=== PATIENT | male | born 1985 ===

== ENCOUNTER 2021-12-03 13:19 | Emergency (ER) | payer SELFPAY ==
[2021-12-03 13:32] VITALS: BP 159/99
--- NOTE | 2021-12-03 14:04 | Emergency Department Report ---
ED Recheck HPI - General Chief Complaint: High BP Stated Complaint: HBP Time Seen by Provider: 12/03/21 14:00 Source: patient Mode of arrival: Ambulatory Limitations: No Limitations - History of Present Illness Initial Comments: Patient is a 36-year-old male that comes to the emergency room from the urgent care because he went there for a work note because he missed work because he was not feeling well. They checked his blood pressure and it was elevated. He states that he had a recent fever and sinus infection. But when I saw his blood pressure they sent him to the ER. By the time he got to the ER his blood pressure had normalized. He has no history of hypertension. He is otherwise healthy and in no acute distress. Denies chest pain or shortness of breath. Is ambulatory, nontoxic [id number]. Complaint: other - Related Data Allergies Allergy/AdvReac Type Severity Reaction Status Date / Time No Known Allergies Allergy Verified 12/03/21 13:32 ED Review of Systems ROS: Stated complaint: HBP Other details as noted in HPI Comment: All other systems reviewed and negative ED Past Medical Hx - Past Medical History Previous Medical History?: No - Surgical History Past Surgical History?: No - Family History Family history: no significant - Social History Smoking Status: Current Every Day Smoker Substance Use Type: Alcohol ED Physical Exam - General Limitations: No Limitations General appearance: alert, in no apparent distress - Head Head exam: Present: atraumatic, normocephalic - Eye Eye exam: Present: normal appearance - ENT ENT exam: Present: mucous membranes moist - Neck Neck exam: Present: normal inspection - Respiratory Respiratory exam: Present: normal lung sounds bilaterally. Absent: respiratory distress - Cardiovascular Cardiovascular Exam: Present: regular rate, normal rhythm. Absent: systolic murmur, diastolic murmur, rubs, gallop - GI/Abdominal GI/Abdominal exam: Present: soft, normal bowel sounds - Rectal Rectal exam: Present: deferred - Extremities Exam Extremities exam: Present: normal inspection - Back Exam Back exam: Present: normal inspection - Neurological Exam Neurological exam: Present: alert, oriented X3 - Psychiatric Psychiatric exam: Present: normal affect, normal mood - Skin Skin exam: Present: warm, dry, intact, normal color. Absent: rash ED Course Vital Signs 12/03/21 13:30 Temperature 98.1 F Pulse Rate 98 H Respiratory 16 Rate Blood Pressure 159/99 [Right] O2 Sat by Pulse 99 Oximetry ED Recheck MDM - Core Measures Measure Exclusions: not indicated - Medical Decision Making Vital Signs 12/03/21 13:30 Temperature 98.1 F Pulse Rate 98 H Respiratory 16 Rate Blood Pressure 159/99 [Right] O2 Sat by Pulse 99 Oximetry Patient has been educated on prevention of hypertension. Including diet, hydration, activity, stress reduction. He verbalizes understanding. The urgent care that him do believe he needed medications given this one-time elevation of blood pressure. I explained to him that 1 blood pressure does not constitute hypertension. He is otherwise healthy has never been told he has hypertension. He has no chest pain or shortness of breath. Patient being discharged home with discharge plan of care including diet, activity, medications and follow-up. He verbalizes understanding of plan of care. Critical care attestation.: If time is entered above; I have spent that time in minutes in the direct care of this critically ill patient, excluding procedure time. ED Disposition Clinical Impression: Blood pressure check Disposition: HOME / SELF CARE / HOMELESS Is pt being admited?: No Does the pt Need Aspirin: No Condition: Stable Instructions: Preventing Hypertension Additional Instructions: Avoid smoking or alcohol consumption Regular water Eliminate salt and fast and fried foods in your diet Exercise daily Monitor your blood pressure as we discussed I have given you referral to the primary care that we have discussed. See below Referrals: TERRY WICK MD [Staff Physician] - 3-5 Days Forms: Work/School Release Form(ED) Time of Disposition: 14:03
== END 2021-12-03 14:10 | disposition home or self-care (01) ==
LOC: ED 13:19
DX: Z01.30 Encounter for examination of blood pressure without abnormal findings (principal); F17.200 Nicotine dependence, unspecified, uncomplicated; Z72.89 Other problems related to lifestyle
CPT/HCPCS: 99282